=== PATIENT | female | born 2000 | race Caucasian/White ===

== ENCOUNTER → 2022-01-16 11:41 | Outpatient (CLI) | payer OTHER, SELFPAY ==
--- NOTE | 2022-01-16 | ECG_ITS ---
APPROVED REPORT Exam: Resting ECG HR:74 bpm ECG Measurements Heart Rate 74 AXES LA 154 P 79 QRSd 78 QRS 80 QT 359 T 55 QTc 387 Conclusion SINUS RHYTHM NORMAL ECG UNCONFIRMED REPORT Electronically signed by : Dillon Cid MD 01/17/2022 10:11:23
== END ==
PROVIDERS: PCP Nurse Practitioner Family; Visit Provider Specialist
DX: R55 Syncope and collapse (principal)
CPT/HCPCS: 93005; 93225; 93226

== ENCOUNTER → 2022-01-18 09:02 | Outpatient (CLI) | payer OTHER, SELFPAY | PROVIDERS: PCP Nurse Practitioner Family; Visit Provider Specialist | DX: R55 Syncope and collapse (principal); R51.9 Headache, unspecified; R44.0 Auditory hallucinations | CPT/HCPCS: 95816; 95819 ==

== ENCOUNTER → 2022-01-23 15:10 | Outpatient (CLI) | payer OTHER, SELFPAY ==
--- NOTE | 2022-01-23 15:11 | MR_ITS ---
FINAL REPORT CLINICAL HISTORY: hallucinations, headaches syncope x 4 years , light headedness, headaches FINDINGS: Multi planar MR imaging was obtained through the brain without contrast. The midline structures appear intact. There may be minimal cerebellar tonsillar ectasias. There is no convincing evidence of Chiari malformation. On T2 and flair axial images the brain parenchyma is homogeneous. On diffusion-weighted images there is no evidence of restricted diffusion. The visualized paranasal sinuses demonstrate normal signal voids. The seventh and eighth nerve root complexes are intact. IMPRESSION: Minimal cerebellar tonsillar ectasia without definite evidence of Chiari malformation. No intra-axial abnormality. Reviewed, Interpreted and Dictated by Nathen Upton MD Transcribed by Nicolás Edwards Authenticated by Nathen Upton MD on 01/23/2022 04:44:51 PM [facility]
== END ==
PROVIDERS: PCP Nurse Practitioner Family; Visit Provider Specialist
DX: R44.0 Auditory hallucinations (principal); R51.9 Headache, unspecified
CPT/HCPCS: 70551

== ENCOUNTER → 2022-01-25 09:53 | Day surgery (SDC) | payer OTHER, SELFPAY ==
[2022-01-25 10:37] VITALS: BMI 21.7
--- NOTE | 2022-01-25 12:29 | HMH.TILT ---
Findings:: PROCEDURE: Upright tilt table test REQUESTING PHYSICIAN: Julia Zuleta MD INDICATION: Recurrent episodes of syncope/near syncope BETA BLOCKERS: None PRE-TEST VITAL SIGNS: BP 115/75, HR 71bpm and sinus rhythm, O2 SATs 100% on RA PROCEDURE SUMMARY: Patient was prepped per protocol with history obtained, IV started, procedure explained, EKG, BP and O2 sat monitors attached and safety straps applied. She was then tilted for 45 minutes at 70 degrees. While upright the patient denied any symptoms to include no dizziness, lightheadedness, weakness, syncope or near syncope. Her vital signs remained stable with minimal variability during the test. Lowest BP was 108/71 after 35 minutes upright. Highest BP was 139/85 after 25 minutes upright. Lowest HR was 60bpm at 45 minutes upright and highest HR was 81 bpm at 5 minutes upright. Rhythm was normal sinus throughout. O2 sats 97 to 100% throughout. COMPLICATIONS: None CONCLUSIONS: Negative upright tilt table test.
== END ==
PROVIDERS: PCP Nurse Practitioner Family; Visit Provider Specialist
DX: R55 Syncope and collapse (principal)

== ENCOUNTER → 2022-02-08 14:53 | Outpatient (CLI) | payer OTHER, SELFPAY ==
--- NOTE | 2022-02-08 14:56 | CA_ITS ---
FINAL REPORT TECHNIQUE: Color Doppler, duplex Doppler and arrieta scale sonography of the bilateral neck arterial vasculature was performed. Velocities were measured in the carotid arteries. Stenosis evaluation based on the validated velocity criteria. CLINICAL HISTORY: RT BRUIT,DIZZINESS,SYNCOPE FINDINGS: The peak systolic velocity of the right common carotid artery is 162 cm/s. The peak systolic velocity of the right internal carotid artery is 172 cm/s and end diastolic velocity 50 cm/s. The ICA/CCA ratio is 1.07. No plaque is present. The right external carotid artery is patent. The right vertebral artery is patent with antegrade flow. The peak systolic velocity of the left common carotid artery is 167 cm/s. The peak systolic velocity of the left internal carotid artery is 104 cm/s and end diastolic velocity 39 cm/s. The ICA/CCA ratio is 0.83. No plaque is present. The left external carotid artery is patent.The left vertebral artery is patent with antegrade flow. IMPRESSION: No evidence of bilateral carotid stenosis. Bilateral patent vertebral arteries with antegrade flow. Reviewed, Interpreted and Dictated by Pascual Botello III, MD Transcribed by Heydi Swanson Authenticated by Pascual Botello III, MD on 02/08/2022 04:49:[address] [facility]
== END ==
PROVIDERS: PCP Nurse Practitioner Family; Visit Provider Specialist
DX: R55 Syncope and collapse (principal)
CPT/HCPCS: 93880

== ENCOUNTER 2023-10-10 17:00 | Emergency (ER) | payer OTHER, SELFPAY ==
--- NOTE | 2023-10-10 16:59 | ECG_ITS ---
APPROVED REPORT Exam: Resting ECG HR:93 bpm ECG Measurements Heart Rate 93 AXES WV 150 P 75 QRSd 81 QRS 82 QT 337 T 56 QTc 388 Conclusion SINUS RHYTHM WITH SINUS ARRHYTHMIA NORMAL ECG UNCONFIRMED REPORT Electronically signed by : Dillon Cid MD 10/10/2023 20:06:15
[2023-10-10 17:00] VITALS: BP 148/90; PULSE 90; RESP 98; TEMP 36.7; O2SAT 99; BMI 25.4
--- NOTE | 2023-10-10 17:22 | PC.NURSE ---
DR LEDBETTER AT BEDSIDE
[2023-10-10 17:30] VITALS: BP 128/71; PULSE 87; O2SAT 98
--- NOTE | 2023-10-10 17:35 | XR_ITS ---
PROCEDURE INFORMATION: Exam: XR Chest Exam date and time: 10/10/2023 6:38 PM Age: 23 years old Clinical indication: Pain; Chest pressure; Additional info: Cp left sided TECHNIQUE: Imaging protocol: Radiologic exam of the chest. Views: 1 view. COMPARISON: No relevant prior studies available. FINDINGS: Lungs: Pulmonary vasculature grossly normal. No gross pulmonary infiltrates or edema pattern. Pleural spaces: No pleural effusion. No pneumothorax. Heart/Mediastinum: Heart size normal. No tracheal/mediastinal shift. Bones/joints: No acute osseous abnormalities are identified. Other findings: Extrinsic artifacts over the upper chest/lower neck. IMPRESSION: No acute thoracic process.
--- NOTE | 2023-10-10 17:39 | ED_ITS ---
Discharge Plan Disposition Patient Disposition: Home, Self-Care Prescriptions Prescriptions: New lidocaine 5 % adhesive patch,medicated 1 patch topical DAILY Qty: 30 0RF Rx Instructions: leave on most painful area for up to 12 hrs No Action Vraylar 1.5 mg capsule 1.5 mg PO DAILY Qty: 30 3RF lorazepam 1 mg tablet 1 mg PO DAILY PRN (Reason: anxiety) Qty: 10 1RF Rx Instructions: for panic level anxiety use very sparingly Referrals Follow up/Referrals: Provider,Referral, MD [Primary Care Provider] - See instructions Activity Restrictions/Add. Instructions Additional Instructions/Restrictions: Call your family doctor to establish care for this visit to the emergency department and schedule follow-up within 48 hours to ensure improvement. If you have any worsening of your condition or any other concerning signs or symptoms, return to the emergency department or your primary care doctor for further evaluation. Apply lidocaine patches once daily to help with pain. Take Tylenol 1000 mg every 6 hours (4 times daily) and ibuprofen 400 mg every 6 hours (4 times daily) as needed with food and water to prevent GI upset and kidney damage. Clinical Impressions Clinical Impression: Chest pain, Intercostal muscle strain Discharge ED Provider: Inocente Hwang [facility] General Chief Complaint: Chest Pain Stated Complaint: cp Time Seen by Provider: 10/10/23 17:13 Mode of Arrival: Ambulatory Source of Information: Patient Limitations: No Limitations Description of Symptoms (Recalled from ER Triage Doc. by RN): Patient reports chest pain starting Saturday. Patient was seen at [facility] Saturday and was diagnosed with Pleurisy and told to follow up with PCP. States she followed up today and was given steroid shot, went home and took a nap woke up and chest pain more severe. No other issues at this time. History of Present Illness HPI narrative: 23-year-old female history anxiety presenting with chest pain. This been going on since Saturday about 3 days prior to this visit. Intermittently worsening. Went to the ER at outside hospital on Saturday, was diagnosed with pleurisy and told to take ibuprofen, given steroid shot. Doctor family doctor today after worsening pain, told her to come to the emergency department for further evaluation. Patient states it is left-sided, radiates to her neck and left arm, associated with worsening pain with pressure. Shortness of breath with deep inspiration. States she felt febrile, but no objective temperature was mentioned. No DVT or PE risk factors or history. Related Data Previous Rx's Medication Instructions Recorded cariprazine 1.5 mg capsule 1.5 mg PO DAILY #30 caps 02/08/23 (Vraylar) lorazepam 1 mg tablet 1 mg PO DAILY PRN anxiety #10 tabs 02/08/23 lidocaine 5 % topical patch 1 patch topical DAILY #30 ea 10/10/23 Allergies Allergy/AdvReac Type Severity Reaction Status Date / Time Latex, Natural Rubber Allergy Rash Verified 02/08/23 10:13 [facility] Disclaimer: The information contained in this section may have been updated after the jose armandoen allen was seen, as this information can be updated by other users. 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 ROS Obtained: Yes All systems reviewed & no additional complaints except as documented Physical Exam General General appearance: alert and other (tearful) Neck Neck exam: Present trachea midline Chest Chest inspection: Present normal inspection, symmetric chest wall rise and tenderness (With application of pressure) Respiratory Respiratory exam: Present normal lung sounds bilaterally; Absent respiratory distress, wheezes, stridor, accessory muscle use or prolonged expiratory phase Cardiovascular Cardiovascular exam: Present regular rate and normal rhythm Extremities Exam Extremities exam: Absent edema Neurological Exam Neurological exam: Present alert, oriented X3 and CN II-XII intact Skin Skin exam: Present warm and dry; Absent cyanosis, diaphoresis or pallor HEART Score HEART Score HEART Score assessment performed?: Yes HEART Score: 1 Critical Care Critical Care Time Critical Care Time: No Medical Decision Making Medical Records Medical records reviewed: Yes I reviewed the patient's medical records. Kyaw Inquiry Pt receiving controlled substance: No Kyaw was queried for this patient: No Vital Signs Vital Signs: 10/10/23 17:00 10/10/23 17:30 10/10/23 18:00 Temperature 98.1 F Temperature Source Oral Pulse Rate 87 84 Pulse Rate [Right] 90 Respiratory Rate 98 H Blood Pressure 128/71 119/75 Blood Pressure [Right Arm] 148/90 H Blood Pressure Mean [Right Arm] 109 Blood Pressure Source [Right Arm] Automatic Cuff 02 Sat by Pulse Oximetry 99 98 99 Oxygen Delivery Method Room Air 10/10/23 18:30 Temperature Temperature Source Pulse Rate 74 Pulse Rate [Right] Respiratory Rate Blood Pressure 124/87 Blood Pressure [Right Arm] Blood Pressure Mean [Right Arm] Blood Pressure Source [Right Arm] 02 Sat by Pulse Oximetry 98 Oxygen Delivery Method Lab Data Labs: Lab Results 10/10/23 17:05: WBC 7.1, RBC 4.63, Hgb 14.5, Hct 42.5, MCV 91.8, MCH 31.3 H, MCHC 34.1, RDW 13.3, Plt Count 360, MPV 7.1 L, Neut % (Auto) 86.3 H, Lymph % (Auto) 10.1, [place] % (Auto) 3.1, Eos % (Auto) 0.2, Baso % (Auto) 0.3, Neut # (Auto) 6.1, Lymph # (Auto) 0.7, [place] # (Auto) 0.2, Eos # (Auto) 0.0, Baso # (Auto) 0.0, Total Counted 100, Neutrophils % (Manual) 92 H, Lymphocytes % (Manual) 7 L, Monocytes % (Manual) 1 L, Platelet Estimate Normal, RBC Morphology Normal, D-Dimer 0.40, Sodium 138, Potassium 4.0, Chloride 107, Carbon Dioxide 23, Anion Gap 12.0, BUN 10, Creatinine 0.60, Estimated Creat Clear 165, Estimated GFR 124, Est GFR ( Amer) 150, Glucose 150 H, Calcium 9.1, Total Bilirubin 0.4, AST 23, ALT 19, Alkaline Phosphatase 58, Troponin I < 0.01, Total Protein 7.8, Albumin 4.7, Globulin 3.1, Albumin/Globulin Ratio 1.5, Lipase 47, HCG, Quant < 2 10/10/23 19:19: Troponin I < 0.01 10/10/23 17:05 10/10/23 17:05 Response Orders (Tests/Meds): ED MEDICATIONS Discontinued Medications Generic Name Dose Route Start Last Admin Trade Name Freq PRN Reason Stop Dose Admin Belladonna Alkaloids 60 ml 10/10/23 17:36 10/10/23 17:47 Belladonna Alkaloids 60 Ml Ml PO 10/10/23 17:37 60 ml ONCE ONE Administration Ketorolac Tromethamine 15 mg 10/10/23 17:36 10/10/23 17:47 Ketorolac 30mg/Ml Vial IV 10/10/23 17:37 15 mg ONCE ONE Administration Lidocaine 1 each 10/10/23 19:05 10/10/23 19:24 Lidocaine 5% Transdermal Patch TP 10/10/23 19:06 1 each ONCE ONE Administration ORDERS Category Date Time Status CXR --portable [XR chest portable] Stat Exams 10/10/23 17:35 Completed POCUS Point of Care (ER Only) Stat Exams 10/10/23 17:35 Taken CBC w/Auto Diff [Complete Blood Count Auto Diff] Stat Lab 10/10/23 17:05 Completed CMP [Comprehensive Metabolic Panel] Stat Lab 10/10/23 17:05 Completed D-Dimer Stat Lab 10/10/23 17:05 Completed HCG,Quantitative Stat Lab 10/10/23 17:05 Completed Lipase Stat Lab 10/10/23 17:05 Completed Trop I [Troponin I] Stat Lab 10/10/23 17:05 Completed Troponin I Q3H Lab 10/10/23 19:19 Completed Troponin I Q3H Lab 10/10/23 23:45 Ordered UA [Urinalysis and Microscopic] Stat Lab 10/10/23 17:41 Ordered ECG initial Besson Routine Y 10/10/23 16:59 Completed MDM Narrative Medical Decision Narrative: 23-year-old female history anxiety presenting with chest pain. This been going on since Saturday about 3 days prior to this visit. Intermittently worsening. Went to the ER at outside hospital on Saturday, was diagnosed with pleurisy and told to take ibuprofen, given steroid shot. Doctor family doctor today after worsening pain, told her to come to the emergency department for further evaluat ion. Patient states it is left-sided, radiates to her neck and left arm, associated with worsening pain with pressure. Shortness of breath with deep inspiration. States she felt febrile, but no objective temperature was mentioned. No DVT or PE risk factors or history. history was obtained via c onversation with patient and mother. On arrival, patient hemodynamically stable, alert, oriented x4, appropriate, GCS 15, moving all extremities spontaneously, pupils equal and reactive to light. F ull physical exam performed and significant for tearful, but in no acute distress. Chest wall tenderness left-sided. Lungs clear to auscultation bilaterally. No lower extremity edema. Saturating appropriately, hemodynamically stable, afebrile and nontachycardic. Differential includes pleurisy, pneumothorax, PE, pneumonia, bronchitis, intercostal muscle strain, among others. Patient was given Toradol for symptomatic management and correction of underlying abnormalities. Workup independently interpreted and significant for nonactionable CBC or chemistry. Negative initial troponin. Negative lipase and negative D-dimer. See radiology read for full review of final results. Independent interpretation of EKG shows sinus rhythm 93 beats a minute without ST or T wave changes concerning for acute ischemia. No right heart strain. No evidence of pulmonary disease pattern. AR, QRS, QT intervals within normal limits. Bedside ultrasound with normal cardiac activity, normal overall. Patient was placed in observation beginning at 1700 in order to delta troponins and cardiac monitoring and determine need for admission versus home-going. The patient was provided delta troponin, serial exams, lidocaine patch and GI cocktail while awaiting results. Independent interpretation of results demonstrated negative delta troponin. On reevaluation, patient feeling much better after GI cocktail and Toradol, but pain still intermittent and there. Lidocaine patch placed with mild relief. At this time, I feel patient is appropriate for discharge. Further conversation states that patient was heavy lifting and probably led to strain of intercostal muscle. Total observation time 3.0 hours. Because patient at baseline without signs or symptoms of clinical decompensation, deemed appropriate for discharge. Results were relayed to patient who voiced understanding and were agreeable to outpatient management and follow up. At the time of discharge the patient was hemodynamically stable, tolerating PO, and mobilizing appropriately.
[2023-10-10 17:45] LABS: Basophils % 0.3 % (0.1-2.0); Eosinophils % 0.2 % (0.1-12.0); Hematocrit 42.5 % (37.0-47.0); Hemoglobin 14.5 g/dL (12.2-16.2); Lymphocytes # 0.7 K/mm3 (0.7-4.5); Lymphocytes % 10.1 % (10-50); Mean Corpuscular HGB Conc 34.1 g/dL (31.8-35.4); Mean Corpuscular Hemoglobin 31.3 pg (27.0-31.2); Mean Corpuscular Volume 91.8 fl (81-99); Mean Platelet Volume 7.1 fl (7.4-10.4); Monocytes # 0.2 K/mm3 (0.1-1.0); Monocytes % 3.1 % (1.7-9.3); Neutrophils # 6.1 K/mm3 (1.8-7.8); Neutrophils % 86.3 % (37.0-80.0); Platelet Count 360 K/mm3 (142-424); Red Blood Count 4.63 M/mm3 (4.20-5.40); Red Cell Distribution Width 13.3 % (11.5-17.5); White Blood Count 7.1 K/mm3 (4.8-10.8)
[2023-10-10] MEDS: KETOROLAC 30MG/ML VIAL 15 MG IV (17:47)
[2023-10-10] MEDS: BELLADONNA ALKALOIDS 60 ML ML PO (17:47)
[2023-10-10 17:48] LABS: MANUAL DIFFERENTIAL MANUAL DIFFERENTIAL (MANUAL DIFF)
[2023-10-10 17:49] LABS: Alanine Aminotransferase 19 U/L (12-78); Alkaline Phosphatase 58 U/L (38-126); Aspartate Amino Transferase 23 U/L (14-36); Bilirubin,Total 0.4 mg/dl (0.2-1.3); Blood Urea Nitrogen 10 mg/dl (7-17); Calcium 9.1 mg/dl (8.4-10.2); Carbon Dioxide 23 mmol/L (22.0-30.0); Chloride 107 mmol/L (98-107); Creatinine Clearance Estimated 165 mL/min (50-200); Estimated Glomerular Filt Rate 124 ml/min (>60); GFR (African American) 150 ML/MIN (>60); Glucose 150 mg/dl (74-100); Lipase 47 U/L (23-300)
[2023-10-10 17:50] LABS: Albumin Level 4.7 g/dl (3.5-5.0); Albumin/Globulin Ratio 1.5 (1.1-1.8); Globulin 3.1 g/dL (1.3-3.2); Sodium 138 mmol/L (136-145); Total Protein,Serum 7.8 g/dl (6.3-8.2)
[2023-10-10 18:00] VITALS: BP 119/75; PULSE 84; O2SAT 99
[2023-10-10 18:03] LABS: Troponin I < 0.01 ng/ml (0.00-0.034)
[2023-10-10 18:04] LABS: Lymphocytes % 7 % (10-50); Monocytes % 1 % (2-9); Neutrophils % 92 % (42-76); Platelet Estimate Normal; RBC Morphology Normal; Total Cells Counted 100
--- NOTE | 2023-10-10 18:15 | PC.NURSE ---
AT WITH ULTRASOUND
[2023-10-10 18:24] LABS: HCG,Quantitative < 2 mIU/ml (0-5.42)
[2023-10-10 18:30] VITALS: BP 124/87; PULSE 74; O2SAT 98
--- NOTE | 2023-10-10 18:41 | PC.NURSE ---
XRAY AT BS
--- NOTE | 2023-10-10 19:23 | PC.NURSE ---
second troponin level was juan and sent to the lab at 191
[2023-10-10] MEDS: LIDOCAINE 5% TRANSDERMAL PATCH 1 EACH TP (19:24)
[2023-10-10 19:47] LABS: Troponin I < 0.01 ng/ml (0.00-0.034)
[2023-10-10 20:44] VITALS: BP 124/75; PULSE 72; RESP 19; TEMP 36.7; O2SAT 98
[2023-10-10 20:47] VITALS: PULSE 98
== END 2023-10-10 20:48 | disposition home or self-care (01) ==
PROVIDERS: Emergency Provider Emergency Medicine
DX: R07.9 Chest pain, unspecified (principal); S29.011A Strain of muscle and tendon of front wall of thorax, initial encounter; M79.602 Pain in left arm; M54.2 Cervicalgia; R06.02 Shortness of breath; F41.9 Anxiety disorder, unspecified; X58.XXXA Exposure to other specified factors, initial encounter; F17.210 Nicotine dependence, cigarettes, uncomplicated
CPT/HCPCS: 71045; 80053; 83690; 84484; 84702; 85007; 85025; 85378; 93005; 96374; 99285